=== PATIENT | male | born 2005 | race Caucasian/White ===

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

== ENCOUNTER 2024-02-13 14:01 | Emergency (ER) | payer OTHER ==
[2024-02-13 14:15] VITALS: BP 131/49; TEMP 98.1
--- NOTE | 2024-02-13 14:18 | ERPHSYRPT ---
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 No wounds or sores on skin. No visible gross blood in the stool. No exposure to nose or mouth, but cannot be sure about the eyes. No other exposure/injury. I consulted with the [facility] National Clinician Consult Hotline center and Espinoza Wiley responded . He confirmed that the exposure is not concerning for BBP exposure including Hep C, Hep B or HIV and does not require PEP. THis is because there was no gross blood present , even with possible eye exposure. The coworker who was also exposed is present in ER and serves as an independent source for Hx of exposure event. Discussed risks/benefits for the required testing with pt and they wish to proceed with standard protocol and after discussion of relative risks also wish to decline any PEP at this time , and having normal mental status have the capacity to make this choice. Timing/Duration: today Severity: mild Modifying Factors: Improves With: nothing Associated Symptoms: denies symptoms Allergies/Adverse Reactions: No Known Drug Allergies Allergy (Verified 02/13/24 14:15) Home Medications: Hydroxyzine HCl 25 mg [Atarax 25 mg] 25 mg PO TID 02/13/24 [History] Hx Tetanus, Diphtheria Vaccination/Date Given: Yes Hx Influenza Vaccination/Date Given: No Hx Pneumococcal Vaccination/Date Given: No Travel Risk - International Travel Have you traveled outside of the country in past 3 weeks: No - Emerging Infectious Disease Are you exhibiting symptoms associated with any current EIDs: No - Review of Systems Constitutional: No Symptoms, No Fever, No Chills Eyes: No Symptoms Ears, Nose, & Throat: No Symptoms Respiratory: No Symptoms, No Cough, No Dyspnea Cardiac: No Symptoms, No Chest Pain, No Edema, No Syncope Abdominal/Gastrointestinal: No Symptoms, No Abdominal Pain, No Nausea, No Vomiting, No Diarrhea Genitourinary Symptoms: No Symptoms, No Dysuria Musculoskeletal: No Symptoms, No Back Pain, No Neck Pain Skin: No Symptoms, Other (exposure to intact skin from stool), No Rash Neurological: No Symptoms, No Dizziness, No Focal Weakness, No Sensory Changes Psychological: No Symptoms Endocrine: No Symptoms All Other Systems: Reviewed and Negative - Past Medical History Pertinent Past Medical History: No - Past Surgical History Past Surgical History: No Significant Family History: no pertinent family hx - Social History Smoking Status: Current some day smoker Exposure to second hand smoke: Yes Drug Use: none Patient Lives Alone: No - Social Determinants of Health Will the patient participate in the screening: Yes Do you worry about a steady place to live?: No Do you have any problems with any of the following?: No known problems In the past 12 months,have you had to go without utilities?: No Transportation Issues: No Has anyone in your support network made you feel unsafe?: No Have you or anyone in your house had to go without enough: No - Nursing Vital Signs Nursing Vital Signs: Initial Vital Signs Temperature 98.1 F 02/13/24 14:06 Pulse Rate 69 02/13/24 14:06 Blood Pressure 131/49 02/13/24 14:06 O2 Sat by Pulse Oximetry 97 02/13/24 14:06 Pain Scale Pain Intensity 0 - Physical Exam General Appearance: no apparent distress, alert Eye Exam: PERRL/EOMI, eyes nml inspection Ears, Nose, Throat Exam: normal ENT inspection, TMs normal, pharynx normal, moist mucous membranes Neck Exam: normal inspection, non-tender, supple, full range of motion Respiratory Exam: normal breath sounds, lungs clear, No respiratory distress Cardiovascular Exam: regular rate/rhythm, normal heart sounds, normal peripheral pulses Gastrointestinal/Abdomen Exam: soft, normal bowel sounds, No tenderness, No mass Rectal Exam: deferred Back Exam: normal inspection, normal range of motion, No CVA tenderness, No vertebral tenderness Extremity Exam: normal inspection, normal range of motion, pelvis stable Neurologic Exam: alert, oriented x 3, cooperative, normal mood/affect, nml cerebellar function, nml station & gait, sensation nml, No motor deficits Skin Exam: normal color, warm, dry, No rash Lymphatic Exam: No adenopathy SpO2 Interpretation: normal SpO2: 97 O2 Delivery: Room Air - Course Nursing assessment & vital signs reviewed: Yes - Progress Progress: improved, re-examined Progress Note: 02/13/24 15:44 discussed risks/benefits for PEP proph and Hep A Tx proph and pt declines at this time , which is reasonable given the low risk for BBP with this exposure and given the CDC guidance - he has normal mental status and the capacity to make this choice. Counseled pt/family regarding: lab results, diagnosis, need for follow-up Medical Desision Making - Independent Historian Additional History obtained from: Relative/friend - Discussion of managment Reviewed:: Test results, Need for additional workup - Diagnostic Testing Diagnostic test were ordered, analyzed, and reviewed by me: No - Risk of complications The pt has a mod risk of morbidity or mortality based on: Need for prescription drug management - Departure Departure Disposition: Home Clinical Impression: Fecal exposure Condition: Good Critical Care Time: No Referrals: DOCTOR,NO FAMILY [Primary Care Provider] - Follow up/PCP as directed Additional Instructions: ALthough the risk for blood bourne pathogens from this exposure was low as determiend by CDC consultation, there still could be a risk for gastrointestinal infection - so report any symptoms and follow-up with your DrChica Return meantime if any symptoms of concern.
[2024-02-13 15:58] VITALS: PULSE 64; RESP 16; O2SAT 98
== END 2024-02-13 15:58 | disposition home or self-care (01) ==
LOC: ED 14:01
DX: Z04.2 Encounter for examination and observation following work accident (principal); Z72.0 Tobacco use; Z79.899 Other long term (current) drug therapy
CPT/HCPCS: 99281